=== PATIENT | male | born 1940 | race Caucasian/White ===

== ENCOUNTER 2020-03-04 06:28 | Inpatient (IN) | payer MEDICARE ==
[~2020-03-04] VITALS: Ht 182.9 cm; Wt 77.1 kg
[2020-03-04 06:38] VITALS: BP 172/101
[2020-03-04] MEDS ORDERED: PROBIOTIC1 EAC7 PO (06:54)
[2020-03-04] MEDS ORDERED: FAMOTIDINE 20 M20 MG PO (06:55)
[2020-03-04] MEDS ORDERED: PREDNISONE 20 M20 MG PO (06:56)
[2020-03-04] MEDS ORDERED: NORVASC10 MG PO (06:56)
[2020-03-04] MEDS ORDERED: SILDENAFIL20 MG PO (06:57)
[2020-03-04] MEDS ORDERED: MEVACOR10 MG PO (06:57)
[2020-03-04] MEDS ORDERED: MUCINEX1200 MG PO (06:57)
[2020-03-04] MEDS ORDERED: IPRAT-ALBUT 0.5-3 ML (06:58)
[2020-03-04] MEDS ORDERED: PULMICORT0.25 MG/2 (06:58)
[2020-03-04 07:11] LABS: ABSOLUTE EOSINOPHILS 0.1 thou/uL (0.0-0.7); ABSOLUTE LYMPHOCYTES 1.2 thou/uL (0.8-5.3); ABSOLUTE MONOCYTES 1.4 thou/uL (0.0-1.2); ABSOLUTE NEUTROPHILS 12.1 thou/uL (1.6-8.1); BASOPHILS 0.2 %; EOSINOPHILS 0.8 %; HEMATOCRIT 41.9 % (42.0-52.0); HEMOGLOBIN 14.2 gm/dL (14.0-18.0); LYMPHOCYTES 7.8 %; MCH 29.8 pg (26.0-34.0); MCV 87.7 fL (80.0-100.0); MONOCYTES 9.5 %; MPV 7.2 fl. (7.2-11.1); NUCLEATED RBCS 0 /100WBC; PLATELET COUNT* 290 thou/uL (150-400); POLYS 81.7 %; RBC 4.78 mil/uL (4.50-6.00); RDW-CV 13.5 % (10.5-14.5); WBC 14.9 thou/uL (4.0-11.0)
[2020-03-04 07:21] LABS: CALCIUM 8.7 mg/dL (8.5-10.1); CREATININE 0.9 mg/dL (0.6-1.3); POTASSIUM 3.3 mmol/L (3.5-5.1)
[2020-03-04 07:22] LABS: PROTIME 10.6 Seconds (9.20-11.50)
[2020-03-04 07:31] LABS: ALBUMIN 3.8 g/dL (3.4-5.0); MAGNESIUM 2.1 mg/dL (1.8-2.4); TOTAL BILIRUBIN 0.7 mg/dL (<0.1-1.0); TOTAL PROTEIN 6.9 g/dL (6.4-8.2)
[2020-03-04 11:00] VITALS: BP 169/84
[2020-03-04 13:18] LABS: URINE BILIRUBIN NEGATIVE (Negative); URINE BLOOD 2+ (Negative); URINE CLARITY CLEAR; URINE COLOR YELLOW; URINE GLUCOSE-RANDOM 2+ (Negative); URINE KETONES TRACE (Negative); URINE LEUKOCYTES-REFLEX NEGATIVE (Negative); URINE NITRITE-REFLEX NEGATIVE (Negative); URINE PROTEIN TRACE (Negative); URINE SPECIFIC GRAVITY >= 1.030 (1.005-1.030); URINE UROBILINOGEN 0.2 E.U./dl (0.2-1.0)
[2020-03-04 13:30] VITALS: BP 146/71
[2020-03-04 13:37] LABS: BACTERIA-REFLEX None Seen /HPF (None Seen); CASTS None Seen /LPF (None Seen); CRYSTALS None Seen /LPF (None Seen); MUCUS 4-6 Moderate strn/LPF (None Seen); SQUAMOUS 0-3 Few /LPF (0-3); URINE RBC 0-2 Rare /HPF (0-2); URINE WBC-REFLEX None Seen /HPF (0-5)
[2020-03-04 13:39] LABS: ICTOTEST (BILI CONFIRMATORY) Negative (Negative)
[2020-03-04 14:20] VITALS: BP 151/78
[2020-03-04 14:25] VITALS: BP 152/74
--- NOTE | 2020-03-04 14:41 | EKG ---
[place] [address] ELECTROCARDIOGRAM REPORT Name: GRACE BRYANT Room: [address] ADM IN .R.#: [id number] Admission: 03/04/20 Attend Phys: Darnell Lieberman, Discharge: Date of : 44 Date of Service: 03/04/20 0635 Report #: [id number] THIS REPORT FOR: //name// [facility] ED Test Date: 2020-03-04 Test Time: 06:35:38 Pat Name: GRACE BRYANT Department: Room: [facility] Gender: M Knock Out Hand: : 1940 Requested By: Charisse Ramos Order Number: [id number] MD: Melvin Arteaga Measurements Intervals [place] Rate: 115 P: 69 NC: 172 QRS: 3 QRSD: 81 T: 73 QT: 329 QTc: 455 Interpretive Statements Sinus tachycardia Borderline low voltage, extremity leads No previous ECG available for comparison Electronically Signed On 03-04-2020 14:40:52 POLE CLASSIFIER by Melvin Arteaga [email or web address] <ELECTRONICALLY SIGNED> By: Melvin Arteaga MD, [facility] 03/04/20 1440 0635 0635 Melvin Arteaga MD, [facility] /EPI
--- NOTE | 2020-03-04 20:17 | NUR ---
A&OX 4, PWD. 02 ON AT 4L PER NC. WAS REALLY LABORED BREATHING WHEN PT CAME UP FROM ER. PT ASSISTED TO BED WITH MODERATE ASSIST. TOOK PT A WHILE TO RECOVER FROM THE 6 STEPS HE TOOK TO GET TO THE BED. LUNGS DIMINISHED ALL FIELD WITH RALES NOTED IN RIGHT LOWER LOBE. PT STATES HE DOES USE O2 AT 2L AT HOME. HEART TONES REGULAR. +BS X 4 QUADS. PEDAL PULSES PRESENT. NO EDEMA NOTED. WENT BACK IN AND CHECKED ON PT C/O RIGHT LOWER BACK PAIN. LIDODERM PATCH PUT ON AND FENT. GIVEN IV. IV LEFT FA INTACT AND PATENT. AT BEDSIDE THIS AFTERNOON. PT STATED HIS LAST BM WAS YESTERDAY. CALL LIGHT WITHIN REACH. WILL CONTINUE TO MONITOR.
[2020-03-04 20:30] VITALS: BP 126/72
--- NOTE | 2020-03-05 07:49 | NUR ---
ASSUMED PT CARE AT 1930. PT IS A/OX4. VSS. PT IS ON O2 VIA NC AT 4L/MIN. LUNG SOUNDS WERE DIMINISHED, RALES NOTED IN THE RIGHT BASE. PT WAS UP TO SIDE OF BED TO USE URINAL INTERMITTENTLY DURING THE NIGHT. PT PUT OUT APPROX. 500ML YELLOW URINE. PT HAS ENLARGED SCROTUM. 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 PT REPORTED BEDSIDE COMMODE ALLOWED HIM TO RELEASE MORE URINE. PT INFILTRATED IV ACCESS ON LFA WHEN STANDING TO USE URINAL. IV WAS D/C'D. NEW IV ACCESS PLACED IN RFA 22G AND IS SL. PT IS CURRENTLY RESTING. HOURLY ROUNDING COMPLETED CHARTED. PT IS ASLEEP IN BED. NO CURRENT C/O VOICED.
[2020-03-05 08:00] VITALS: BP 144/69
--- NOTE | 2020-03-05 16:03 | NUR ---
CM SPOKE TO THE PT TO DISCUSS CM ASSESSMENT. PT A&O. PT NORMALLY INDEPENDENT WITH ADL'S, BUT INFORMS THAT HIS HAS BEEN HELPING MORE LATELY. PT USES HOME O2 AT HOME PROVIDED BY [facility]. PT HAS PAST HX OF HH. PT HAS 0 HX OF SNF. PT INFOMRS THAT HE MIGHT NEED A WALKER AT D/C. CM WILL REMAIN AVAILABLE TO ASSIST AND FOLLOW FOR D/C PLANNING.
[2020-03-05 16:09] VITALS: BP 137/68
[2020-03-05 23:43] VITALS: BP 144/72
--- NOTE | 2020-03-06 05:09 | NUR ---
PATIENT SLEPT WELL DURING THIS SHIFT. PT VOIDS YELLOW URINE PER URINAL. PT WITH SALINE LOCK IN RT FOREARM. PT ON O2 @ 3 LITERS PER NASAL CANNULA. PT WITH EDEMA IN SCROTUM AREA. PT DENIES NEEDS AT THIS TIME. FREQUENTLY USED ITEMS AND CALL LIGHT WITHIN REACH. SIDERAILS UPX2 AND BED ALARM ON. WILL CONTINUE TO MONITOR.
[2020-03-06 05:25] LABS: HEMATOCRIT 37.2 % (42.0-52.0); HEMOGLOBIN 12.5 gm/dL (14.0-18.0); MCH 29.7 pg (26.0-34.0); MCHC 33.7 g/dL (28.0-37.0); MCV 88.1 fL (80.0-100.0); MPV 7.3 fl. (7.2-11.1); RBC 4.22 mil/uL (4.50-6.00); RDW-CV 13.5 % (10.5-14.5); WBC 18.1 thou/uL (4.0-11.0)
[2020-03-06 05:31] LABS: CALCIUM 8.8 mg/dL (8.5-10.1); CREATININE 0.9 mg/dL (0.6-1.3); MAGNESIUM 2.4 mg/dL (1.8-2.4)
[2020-03-06 09:00] VITALS: BP 159/77
[2020-03-06] MEDS ORDERED: CEFDINIR300 MG PO (09:41)
[2020-03-06] MEDS ORDERED: TRAMADOL 50 MG50 MG PO (09:41)
[2020-03-06] MEDS ORDERED: AZITHROMYCIN 2250 MG PO (09:41)
[2020-03-06] MEDS ORDERED: PREDNISONE 20 M20 MG PO (09:41)
[2020-03-06 16:18] VITALS: BP 159/77
[2020-03-06 16:37] VITALS: BP 170/80
--- NOTE | 2020-03-06 17:31 | NUR ---
PATIENT AND VERBALIZED UNDERSTANDING OF DISCHARGE INSTRUCTIONS. NEW MEDICATIONS CALLED INTO PHARMACY OF CHOICE BY DR. PATIENT ASKED ABOUT TAKING ASA HE WAS TAKING BEFORE AT HOME. DR PAGED BUT DID NOT RETURN CALL BEFORE PATIENT WANTED TO LEAVE. PATIENT INSTRUCTED TO CALL HIS DR 03/[address] JANINE SENT HOME WITH PATIENT. DR AWARE OF V/S TODAY. SENT HOME ON O2 AT 3L/NC. PATIENT WAS ON O2 AT HOME PRIOR TO HOSPITAL ADMISSION. PATIENT LEFT VIA W/C AND O2 WITH AND SON.
== END 2020-03-06 17:35 | disposition home or self-care (01) | DRG 562 ==
LOC: M.ERS 06:28 → M.2W 09:22 → M.TBA-ER 09:22 → M.2W 14:20
PROVIDERS: Emergency Medicine; ADMIT Internal Medicine; ATTEND Internal Medicine
DX: S39.012A Strain of muscle, fascia and tendon of lower back, initial encounter (principal); J96.01 Acute respiratory failure with hypoxia; J18.9 Pneumonia, unspecified organism; R65.11 Systemic inflammatory response syndrome (SIRS) of non-infectious origin with acute organ dysfunction; Z20.822 Contact with and (suspected) exposure to COVID-19; E87.6 Hypokalemia; J43.9 Emphysema, unspecified; Z85.46 Personal history of malignant neoplasm of prostate; Z87.891 Personal history of nicotine dependence; X58.XXXA Exposure to other specified factors, initial encounter; Y93.89 Activity, other specified; Y92.89 Other specified places as the place of occurrence of the external cause; Y99.8 Other external cause status